=== PATIENT | female | born 1935 | race Two or more races ===

== ENCOUNTER 2025-05-30 15:11 | Emergency (ER) | payer OTHER ==
[~2025-05-30] VITALS: Ht 160 cm; Wt 74.8 kg
[2025-05-30] MEDS ORDERED: MECLIZINE HCL 25 MG TABLET PO ONE (17:30)
[2025-05-30] MEDS ORDERED: ONDANSETRON HCL 2 MG/ML VIAL IV ONE (17:30)
[2025-05-30 17:52] LABS: BASO % 0.6 % (0.1-1.2); EOS # 0.13 (0.04-0.54); EOS % 2.0 % (0.7-7.0); LYMPH # 1.68 (1.18-3.74); LYMPH % 26.2 % (19.3-53.1); MEAN PLATELET VOLUME 10.50 fl (9.4-12.4); MONO # 0.65 (0.24-0.82); MONO % 10.1 % (4.7-12.5); NEUT # 3.89 (1.56-6.13); NEUT % 60.8 % (34.0-71.1); RED CELL DISTRIBUTION WIDTH 13.0 % (11.6-14.4)
[2025-05-30 18:08] LABS: COVID-19 AG NEGATIVE (NEGATIVE)
[2025-05-30 18:51] LABS: ALT/SGPT 28.0 U/L (12-78); AST/SGOT 24.0 U/L (15-37); BILIRUBIN TOTAL 0.5 mg/dL (0.3-1.2); BUN CREA RATIO 23.0 (7.0-25.0); CREATININE SERUM 1.02 mg/dL (0.55-1.02); GFR 51.26; GLOBULINA 4.6 G/DL (2.4-3.5); GLUCOSE FASTING 107.0 mg/dL (65-100); LDH 209.0 U/L (84-246); OSMOLALITY SERUM 282.0 MOSM/KG (275-295); PHOSPHOKINASE CREATININE 107.0 U/L (26-192)
[2025-05-30] MEDS ORDERED: DRAMAMINE LESS25 MG PO (22:03)
== END 2025-05-30 22:27 | disposition home or self-care (01) ==
LOC: EDBD 15:11 → ER 15:11
PROVIDERS: General Practice
DX: R42 Dizziness and giddiness (principal); Z20.822 Contact with and (suspected) exposure to COVID-19; I10 Essential (primary) hypertension
CPT/HCPCS: 36415; 70450; 93005; 96365; 99284; J2405